=== PATIENT | female | born 1975 | race Caucasian/White ===

== ENCOUNTER 2019-06-06 15:31 | Inpatient (IN) ==
[2019-06-06 16:44] LABS: Apearance,Urine CLEAR (Clear); Bilirubin,Urine Negative (Negative); Blood, Urine Small mg/dL (Negative); Glucose,Urine (UA) Negative (Negative); Ketones,Urine Negative (Negative); Nitrite,Urine Negative (Negative); Protein,Urine Negative; RBC,Urine 3 /HPF (0-4); Squamous Epithelial Cell,Urine Occasional /HPF (0-10); Urine Color Straw (Yellow); Urine Specific Gravity 1.003 (1.001-1.035); Urine Urobilinogen < 2.0 EU/DL (0.2-1.0); WBC,Urine 30 /HPF (0-6)
[2019-06-06 16:47] LABS: Barbiturates Screen,Urine Negative (Negative); Benzodiazepines Screen,Urine Negative (Negative); Cannabinoid Screen,Urine Negative (Negative); Opiate Screen,Urine Negative (Negative); Phencyclidine Screen,Urine Negative (Negative)
[2019-06-06] MEDS ORDERED: ACETAMINOPHEN 325 MG TABLET PO ONE (16:47)
[2019-06-06] MEDS: BETAMETH SODIUM PHOS/ACETATE 30 MG/5 ML VIAL IM SCH (17:09)
[2019-06-06 17:13] LABS: Basophils # 0.2 10*3/uL (0.0-0.2); Basophils % 0.5 % (0.0-0.8); Eosinophils % 0.1 % (0.00-10.9); Hematocrit 35.6 VOL% (35.7-47.0); Hemoglobin 11.9 GM/DL (12.0-16.0); Immature Granulocytes Absolute 0.91 #; Lymphocytes % 6.7 % (21.3-54.2); Mean Corpuscular HGB Conc 33.4 GM/DL (32-36); Mean Corpuscular Volume 90.4 FL (87-102); Mean Platelet Volume 9.6 FL (9.6-12.0); Neutrophils % 85.7 % (38.7-73.9); Platelet Count 280 T/CUMM (130-400); Red Blood Count 3.94 MC/CUMM (3.8-5.5); Red Cell Distribution Width 13.7 % (9.3-17.3); White Blood Count 29.9 T/CUMM (4-12)
[2019-06-06] MEDS: LACTATED RINGERS 1,000 ML IV SCH (17:34)
[2019-06-06 17:42] LABS: Alanine Aminotransferase 16 U/L (13-56); Albumin 2.7 G/DL (3.4-5.0); Alkaline Phosphatase 216 U/L (45-117); Aspartate Amino Transferase 16 U/L (0-37); Bilirubin,Total < 0.39 MG/DL (0.2-1.0); Blood Urea Nitrogen 4 MG/DL (7-18); Calcium 9.5 MG/DL (8.5-10.1); Estimated Glom Filtration Rate 117 ML/MIN; Glucose 124 MG/DL (74-106); Osmolality,Calculated 270.8 MOS/KG (273-304); Total Protein 7.4 G/DL (6.4-8.3)
[2019-06-06] MEDS ORDERED: cefTRIAXone 1,000 MG in SYRINGE 1 EACH IV SCH (18:30)
[2019-06-06 18:53] LABS: Lymphocytes 9 % (20-55); Segmented Neutrophils 89 % (50-85); Total Cells Counted 100
[2019-06-06 18:54] LABS: Platelet Estimate Normal
[2019-06-06 18:55] LABS: Anisocytosis 2+; Polychromasia Few
[2019-06-06 18:56] LABS: Microcytosis Slight
[2019-06-06] MEDS ORDERED: AMPICILLIN INJ 2,000 MG in SODIUM CHLORIDE 0.9% 100 ML IV ONE (19:00)
[2019-06-06] MEDS ORDERED: ONDANSETRON 4 MG/2 ML VIAL IV PRN (19:41)
[2019-06-06] MEDS ORDERED: LACTATED RINGERS 500 ML IV PRN (19:41)
[2019-06-06] MEDS ORDERED: LACTATED RINGERS 1,000 ML IV SCH (20:00)
[2019-06-06] MEDS ORDERED: INFLUENZA VIRUS VACCINE 0.5 ML SYRINGE IM ONE (20:07)
[2019-06-06] MEDS: ceFAZolin 1,000 MG in SYRINGE 1 EACH IV SCH (21:30)
[2019-06-06] MEDS ORDERED: AMPICILLIN INJ 1,000 MG in SODIUM CHLORIDE 0.9% 100 ML IV SCH (23:00)
[2019-06-07] MEDS: ALUMINUM/MAGNES/SIMETH MAX STR 30 ML UDCUP PO PRN (01:40)
[2019-06-07] MEDS: LACTATED RINGERS 1,000 ML IV SCH ×2 (01:46→09:47)
[2019-06-07] MEDS: BETAMETH SODIUM PHOS/ACETATE 30 MG/5 ML VIAL IM SCH (05:13)
[2019-06-07 05:41] LABS: Basophils # 0.2 10*3/uL (0.0-0.2); Basophils % 0.6 % (0.0-0.8); Hematocrit 35.4 VOL% (35.7-47.0); Hemoglobin 11.6 GM/DL (12.0-16.0); Immature Granulocytes % 3.7 %; Immature Granulocytes Absolute 1.26 #; Lymphocytes # 1.9 10*3/uL (1.4-4.0); Lymphocytes % 5.8 % (21.3-54.2); Mean Corpuscular HGB Conc 32.8 GM/DL (32-36); Mean Corpuscular Volume 90.3 FL (87-102); Mean Platelet Volume 9.9 FL (9.6-12.0); Monocytes % 3.6 % (1.7-12.7); Neutrophils % 86.3 % (38.7-73.9); Platelet Count 326 T/CUMM (130-400); Red Blood Count 3.92 MC/CUMM (3.8-5.5); White Blood Count 33.7 T/CUMM (4-12)
[2019-06-07 06:30] LABS: Band Neutrophils 3 % (0-10); Lymphocytes 7 % (20-55); Segmented Neutrophils 83 % (50-85)
[2019-06-07 06:31] LABS: Platelet Estimate Adequate; Total Cells Counted 100
[2019-06-07] MEDS: ceFAZolin 1,000 MG in SYRINGE 1 EACH IV SCH ×2 (08:31→22:22)
[2019-06-07] MEDS ORDERED: ceFAZolin 2,000 MG in PREMIX 1 EACH IV ONE (11:33)
[2019-06-07] MEDS ORDERED: FAMOTIDINE 20 MG/2 ML VIAL IV ONE (11:33)
[2019-06-07] MEDS ORDERED: CITRIC ACID/SODIUM CITRATE 30 ML UDCUP PO ONE (11:33)
[2019-06-07] MEDS ORDERED: OXYTOCIN/LR 20 UNIT/1,000 ML BAG IV ONE ×2 (12:24→15:30)
[2019-06-07] MEDS ORDERED: MIDAZOLAM 2 MG/2 ML VIAL ONE (14:05)
[2019-06-07] MEDS ORDERED: KETOROLAC 30 MG/1 ML VIAL ONE (14:05)
[2019-06-07] MEDS ORDERED: fentaNYL 100 MCG/2 ML VIAL ONE ×2 (14:05→15:37)
[2019-06-07] MEDS ORDERED: propofoL 200 MG/20 ML VIAL IV ONE (14:06)
[2019-06-07] MEDS ORDERED: LIDOCAINE 2% 5 ML VIAL ONE (14:06)
[2019-06-07] MEDS ORDERED: TRANEXAMIC ACID 1,000 MG/10 ML VIAL ONE (14:25)
[2019-06-07] MEDS ORDERED: miSOPROStoL 200 MCG TABLET ONE (14:25)
[2019-06-07] MEDS ORDERED: CARBOPROST TROMETHAMINE 250 MCG/ML AMP IM ONE (14:25)
[2019-06-07] MEDS ORDERED: METHYLERGONOVINE 0.2 MG/1 ML AMP ONE (14:25)
[2019-06-07] MEDS ORDERED: METHYLERGONOVINE 0.2 MG/1 ML AMP IM ONE (14:30)
[2019-06-07] MEDS ORDERED: OXYTOCIN 10 UNIT/ML VIAL ONE (14:45)
[2019-06-07 15:02] LABS: Cord Arterial Blood HCO3 19.8 MMOL/L
[2019-06-07 15:08] LABS: Apearance,Urine CLEAR (Clear); Bacteria,Urine Occasional /HPF (Few); Bilirubin,Urine Negative (Negative); Blood, Urine Negative (Negative); Glucose,Urine (UA) Negative (Negative); Ketones,Urine 80 mg/dL (Negative); Mucus,Urine Occasional /LPF (Occasional); Nitrite,Urine Negative (Negative); Protein,Urine Negative; RBC,Urine 4 /HPF (0-4); Squamous Epithelial Cell,Urine Occasional /HPF (0-10); Urine Color Yellow (Yellow); Urine Specific Gravity 1.016 (1.001-1.035); Urine Urobilinogen < 2.0 EU/DL (0.2-1.0)
[2019-06-07] MEDS ORDERED: HYDROmorphone 2 MG/1 ML VIAL IV ONE (15:08)
[2019-06-07] MEDS ORDERED: LACTATED RINGERS 1,000 ML IV SCH (15:30)
[2019-06-07] MEDS ORDERED: ONDANSETRON 4 MG/2 ML VIAL IV PRN (15:30)
[2019-06-07] MEDS ORDERED: RHO(D) IMMUNE GLOBULIN 300 MCG SYRINGE IM ONE (15:30)
[2019-06-07] MEDS ORDERED: SIMETHICONE CHEW 80 MG TABLET PO PRN (15:30)
[2019-06-07] MEDS ORDERED: ACETAMINOPHEN 325 MG TABLET PO PRN (15:30)
[2019-06-07] MEDS ORDERED: SEVOFLURANE 1 UNIT/15 MINUTE INH ONE (15:37)
[2019-06-07] MEDS ORDERED: SUCCINYLCHOLINE 200 MG/10 ML VIAL ONE (15:37)
[2019-06-07] MEDS ORDERED: NALOXONE 0.4 MG/ML VIAL IV PRN (15:47)
[2019-06-07] MEDS ORDERED: HYDROmorphone PCA 30 MG/30 ML SYRINGE IV SCH (16:00)
[2019-06-07] MEDS ORDERED: HYDROmorphone 2 MG/1 ML VIAL IV PRN (17:39)
[2019-06-07 22:47] LABS: Basophils % 0.1 % (0.0-0.8); Hemoglobin 11.1 GM/DL (12.0-16.0); Immature Granulocytes % 3.3 %; Immature Granulocytes Absolute 1.32 #; Mean Corpuscular HGB Conc 31.7 GM/DL (32-36); Mean Corpuscular Volume 93.3 FL (87-102); Mean Platelet Volume 9.7 FL (9.6-12.0); Neutrophils % 86.6 % (38.7-73.9); Platelet Count 317 T/CUMM (130-400); Red Blood Count 3.75 MC/CUMM (3.8-5.5)
[2019-06-07 23:21] LABS: Lymphocytes 5 % (20-55); Segmented Neutrophils 93 % (50-85)
[2019-06-07 23:22] LABS: Platelet Estimate Normal; Total Cells Counted 100
[2019-06-08] MEDS: oxyCODONE/ACETAMINOPHEN 5-325 MG TABLET PO PRN ×4 (00:05→18:30)
[2019-06-08] MEDS: ALUMINUM/MAGNES/SIMETH MAX STR 30 ML UDCUP PO PRN (00:07)
[2019-06-08] MEDS: DOCUSATE SODIUM 100 MG CAPSULE PO SCH ×3 (00:44→21:45)
[2019-06-08 04:48] LABS: Basophils # 0.1 10*3/uL (0.0-0.2); Basophils % 0.4 % (0.0-0.8); Hematocrit 29.7 VOL% (35.7-47.0); Hemoglobin 9.7 GM/DL (12.0-16.0); Immature Granulocytes % 2.6 %; Immature Granulocytes Absolute 0.82 #; Lymphocytes # 2.2 10*3/uL (1.4-4.0); Mean Corpuscular HGB Conc 32.7 GM/DL (32-36); Mean Corpuscular Volume 91.4 FL (87-102); Mean Platelet Volume 10.2 FL (9.6-12.0); Monocytes % 5.4 % (1.7-12.7); Neutrophils % 84.6 % (38.7-73.9); Platelet Count 295 T/CUMM (130-400); Red Blood Count 3.25 MC/CUMM (3.8-5.5); White Blood Count 31.9 T/CUMM (4-12)
[2019-06-08 05:37] LABS: Anisocytosis Slight; Band Neutrophils 1 % (0-10); Lymphocytes 8 % (20-55); Metamyelocytes 1 %; Microcytosis Slight; Segmented Neutrophils 85 % (50-85); Total Cells Counted 100
[2019-06-08 05:38] LABS: Platelet Estimate Normal; Polychromasia Slight
[2019-06-08] MEDS: ceFAZolin 1,000 MG in SYRINGE 1 EACH IV SCH (05:46)
[2019-06-08] MEDS: MULTIVITAMIN (PRENATAL) TABLET PO SCH (08:37)
[2019-06-08] MEDS: cefOXitin 2,000 MG in SYRINGE 1 EACH IV SCH ×3 (12:25→23:54)
[2019-06-09] MEDS: oxyCODONE/ACETAMINOPHEN 5-325 MG TABLET PO PRN ×4 (00:01→18:28)
[2019-06-09 03:28] LABS: Basophils # 0.1 10*3/uL (0.0-0.2); Basophils % 0.5 % (0.0-0.8); Eosinophils % 0.1 % (0.00-10.9); Hematocrit 27.9 VOL% (35.7-47.0); Hemoglobin 9.1 GM/DL (12.0-16.0); Immature Granulocytes % 4.8 %; Immature Granulocytes Absolute 0.82 #; Lymphocytes # 2.8 10*3/uL (1.4-4.0); Lymphocytes % 16.3 % (21.3-54.2); Mean Corpuscular HGB Conc 32.6 GM/DL (32-36); Mean Corpuscular Volume 91.5 FL (87-102); Mean Platelet Volume 9.5 FL (9.6-12.0); Monocytes % 9.6 % (1.7-12.7); Neutrophils % 68.7 % (38.7-73.9); Platelet Count 302 T/CUMM (130-400); Red Blood Count 3.05 MC/CUMM (3.8-5.5)
[2019-06-09] MEDS: cefOXitin 2,000 MG in SYRINGE 1 EACH IV SCH (06:44)
[2019-06-09] MEDS: MULTIVITAMIN (PRENATAL) TABLET PO SCH (08:03)
[2019-06-09] MEDS: DOCUSATE SODIUM 100 MG CAPSULE PO SCH ×2 (08:03→21:34)
[2019-06-09] MEDS: MAGNESIUM HYDROXIDE SUSP 30 ML UDCUP PO PRN (08:03)
[2019-06-09] MEDS: IBUPROFEN 800 MG TABLET PO PRN (08:04)
[2019-06-09] MEDS ORDERED: LEVALBUTEROL 1.25 MG/3 ML NEB RESP TX PRN (12:27)
[2019-06-10] MEDS: oxyCODONE/ACETAMINOPHEN 5-325 MG TABLET PO PRN ×2 (03:10→07:28)
[2019-06-10 05:36] LABS: Basophils # 0.1 10*3/uL (0.0-0.2); Basophils % 0.7 % (0.0-0.8); Eosinophils # 0.1 10*3/uL (0.0-0.87); Eosinophils % 0.8 % (0.00-10.9); Hematocrit 28.1 VOL% (35.7-47.0); Hemoglobin 9.1 GM/DL (12.0-16.0); Immature Granulocytes % 4.3 %; Immature Granulocytes Absolute 0.57 #; Lymphocytes # 2.7 10*3/uL (1.4-4.0); Lymphocytes % 20.5 % (21.3-54.2); Mean Corpuscular HGB Conc 32.4 GM/DL (32-36); Mean Corpuscular Volume 92.1 FL (87-102); Mean Platelet Volume 9.3 FL (9.6-12.0); Monocytes % 7.2 % (1.7-12.7); Neutrophils % 66.5 % (38.7-73.9); Platelet Count 299 T/CUMM (130-400); Red Blood Count 3.05 MC/CUMM (3.8-5.5); Red Cell Distribution Width 13.7 % (9.3-17.3); White Blood Count 13.1 T/CUMM (4-12)
[2019-06-10 05:56] LABS: Eosinophils 2 % (0-10); Lymphocytes 21 % (20-55); Metamyelocytes 1 %; Myelocytes 1 %; Segmented Neutrophils 71 % (50-85); Total Cells Counted 100
[2019-06-10 05:57] LABS: Anisocytosis 1+; Hypochromasia Slight; Platelet Estimate Adequate
[2019-06-10] MEDS: MAGNESIUM HYDROXIDE SUSP 30 ML UDCUP PO PRN (07:29)
[2019-06-10] MEDS: IBUPROFEN 800 MG TABLET PO PRN (07:29)
[2019-06-10] MEDS: DOCUSATE SODIUM 100 MG CAPSULE PO SCH (07:29)
[2019-06-10 07:51] VITALS: BP 127/70
[2019-06-10] MEDS: MULTIVITAMIN (PRENATAL) TABLET PO SCH (08:36)
== END 2019-06-10 14:50 | disposition home or self-care (01) | DRG 540 ==
LOC: N.OBOUT 15:31 → N.LD 15:37 → N.OB 06-07 18:30
PROVIDERS: ADMIT Obstetrics & Gynecology; ATTEND Obstetrics & Gynecology
PROC: LDCSECT (ICD-10-PCS; 2019-06-07 14:00)